=== PATIENT | female | born 1985 | race Caucasian/White ===

== ENCOUNTER 2020-05-30 15:09 | Outpatient (CLI) | payer BC, SELFPAY ==
[2020-05-30 15:40] LABS: Basophils Percent Auto 0.3 % (0.2-1.2); Eosinophils Absolute Auto 0.1 K/mm3 (0-0.3); Eosinophils Percent Auto 1.3 % (0-4.4); Hematocrit 34.6 % (37.0-47.0); Hemoglobin 11.9 g/dL (12.0-15.0); Immature Granulocyte Absolute 0.04 K/mm3 (0.00-0.031); Immature Granulocyte Percent A 0.6 % (0-0.5); Lymphocytes Absolute Auto 1.35 K/mm3 (0.9-3.2); Lymphocytes Percent Auto 19.5 % (18.3-44.2); Mean Corpuscular HGB Conc 34.4 g/dl (32-36); Mean Corpuscular Hemoglobin 28.3 pg (26-34); Mean Corpuscular Volume 82.4 fl (80-100); Monocytes Absolute Auto 0.4 K/mm3 (0.1-0.6); Monocytes Percent Auto 5.1 % (2.6-8.5); Neutrophils Absolute Auto 5.1 K/mm3 (1.3-6.7); Neutrophils Percent Auto 73.2 % (45.5-73.1); Platelet Count Result 272 k/mm3 (150-375); Red Cell Distribution Width 12.5 % (11.5-14.5); White Blood Count 6.9 K/mm3 (4.5-10.0)
[2020-05-30 15:42] LABS: Add Urine Microscopic? NO; Appearance Urine Clear (Clear); Bilirubin Urine Negative (Negative); Blood Urine Negative (Negative); Color Urine Yellow (Yellow); Glucose Urine UA Negative (Negative); Ketones Urine Negative (Negative); Leukocyte Esterase Ur Negative LEU/UL (NEGATIVE); Nitrate Urine Negative (Negative); Protein Urine Negative (Negative); Specific Grav Ur 1.018 (1.001-1.035); Urobilinogen Urine Negative mg/dL (<2.0)
[2020-05-30 16:22] LABS: Thyroid Stimulating Hormone 0.907 uIU/mL (0.465-4.680)
[2020-05-30 16:32] LABS: HIV 1/2 Ab P24 Ag Result Negative (Negative)
[2020-05-30 16:36] LABS: Vitamin D 25 Hydroxy 38.6 ng/mL
[2020-05-30 16:51] LABS: Hepatitis B Surface Antigen Negative (Negative); Rubella IgG Antibody 8.3 IU/ML
[2020-05-30 17:07] LABS: Hepatitis C Virus Antibody Negative (Negative)
[2020-05-31 07:36] LABS: Rapid Plasma Reagin Non-Reactive (NonReactive)
[2020-06-06 19:18] LABS: Hemoglobin 11.7 g/dL (11.7-15.5); MCH 27.4 pg (27.0-33.0); RDW 13.4 % (11.0-15.0); Red Blood Cell Count 4.27 Mill/uL (3.80-5.10)
== END 2020-05-30 15:10 | disposition home or self-care (01) ==
LOC: ANHLAB 15:11
PROVIDERS: PCP Physician Assistant; Visit Provider Obstetrics & Gynecology
DX: Z34.90 Encounter for supervision of normal pregnancy, unspecified, unspecified trimester (principal); Z3A.00 Weeks of gestation of pregnancy not specified; Z51.81 Encounter for therapeutic drug level monitoring; Z79.899 Other long term (current) drug therapy
CPT/HCPCS: 36415; 81003; 82306; 83021; 84443; 85025; 86592; 86703; 86762; 86787; 86803; 86850; 86900; 86901; 87086; 87340; G0432

== ENCOUNTER 2020-09-05 15:48 | Emergency (ER) | payer BC, SELFPAY ==
--- NOTE | 2020-09-05 15:54 | ECG_ITS ---
Measurements Intervals [place] Rate: 133 P: 41 OR: 141 QRS: 4 QRSD: 97 T: 5 QT: 300 QTc: 446 Interpretive Statements SINUS TACHYCARDIA INCOMPLETE RIGHT BUNDLE BRANCH BLOCK DELAYED PRECORDIAL R/S TRANSITION BORDERLINE ST-T WAVE ABNORMALITY- INFERIOR LEADS BASELINE WANDER- V4-V6 ABNORMAL ECG Electronically Signed On 09-05-2020 16:03:40 CDT by Paxton Rolon D.O.
[2020-09-05 16:01] VITALS: BP 134/82; PULSE 133; RESP 18; TEMP 36.1; O2SAT 96
[2020-09-05 16:15] LABS: Basophils Percent Auto 0.3 % (0.2-1.2); Eosinophils Percent Auto 0.1 % (0-4.4); Hematocrit 33.5 % (37.0-47.0); Hemoglobin 11.1 g/dL (12.0-15.0); Immature Granulocyte Absolute 0.08 K/mm3 (0.00-0.031); Immature Granulocyte Percent A 0.7 % (0-0.5); Lymphocytes Absolute Auto 0.39 K/mm3 (0.9-3.2); Lymphocytes Percent Auto 3.5 % (18.3-44.2); Mean Corpuscular HGB Conc 33.1 g/dl (32-36); Mean Corpuscular Hemoglobin 26.9 pg (26-34); Mean Corpuscular Volume 81.3 fl (80-100); Mean Platelet Volume 9.9 fl (7.4-10.4); Monocytes Absolute Auto 0.5 K/mm3 (0.1-0.6); Monocytes Percent Auto 4.9 % (2.6-8.5); Neutrophils Percent Auto 90.5 % (45.5-73.1); Platelet Count Result 249 k/mm3 (150-375); Red Blood Count 4.12 M/mm3 (4.2-5.4); Red Cell Distribution Width 13.3 % (11.5-14.5); White Blood Count 11.1 K/mm3 (4.5-10.0)
[2020-09-05 16:27] LABS: Alanine Aminotransferase 10 U/L (4-35); Alkaline Phosphatase 110 U/L (38-126); Anion Gap 10 mmol/L (8-16); Aspartate Amino Transferase 17 U/L (14-36); Bilirubin,Total 0.4 mg/dL (0.2-1.3); Blood Urea Nitrogen 7 mg/dL (7-17); Calcium 9.2 mg/dL (8.4-10.2); Carbon Dioxide 19 mmol/L (22-30); Chloride 102 mmol/L (98-107); Estimated CRCL calculation 171 ml/min; Estimated Glomerular Filt Rate > 60; Glucose 106 mg/dL (65-105); Potassium 3.7 mmol/L (3.4-5.0); Sodium 131 mmol/L (137-145)
--- NOTE | 2020-09-05 17:15 | ED.ARRPALP ---
HPI - Arrhythmia/Palpitations General Chief Complaint: Arrhythmia/Palpitations Stated Complaint: palpitations Time Seen by Provider: 09/05/20 17:14 History of Present Illness HPI narrative: 34 yo female at 25 weeks gestation presents to the ED for tachycardia. She reports that she has had an elevated heart rate all day. It was as high as 160 at home. She does report that she had some mild SOB, but thought it was probably anxiety. She got her COVID-19 vaccination yesterday and has experienced some aches and fatigue. No fever, chills, nausea, vomiting, diarrhea. Related Data Home Medications Medication Instructions Recorded Confirmed docosahexaenoic acid 200 mg capsule mg PO 05/25/19 09/06/20 levothyroxine 25 mcg tablet 25 mcg PO DAILY 05/08/20 09/06/20 Allergies Allergy/AdvReac Type Severity Reaction Status Date / Time sulfamethoxazole Allergy Unknown Unknown Verified 09/06/20 13:56 trimethoprim Allergy Unknown Unknown Verified 09/06/20 13:56 Review of Systems Review of Systems: All systems reviewed & are unremarkable except as noted in HPI and below Constitutional: Constitutional: Denies chills, Reports fatigue, Denies fever(s) and Denies weakness Eyes: Eyes: Reports no additional eye complaints ENT: Reports system reviewed and no additional complaints, except as documented and Denies sore throat Cardiovascular: Cardiovascular: Denies chest pain and Reports rapid heart rate Respiratory: Respiratory: Reports as per HPI Gastrointestinal: Gastrointestinal: Reports no additional gastrointestinal complaints Genitourinary: Genitourinary: Reports no additional female genitourinary complaints Neurologic: Reports system reviewed and no additional complaints, except as documented, Denies dizziness and Denies syncope [facility] Past Medical History Medical History Anovulation Anxiety Anxiety Chlamydia Depression Encounter for general counseling and advice on procreation History of delivery Surgical History Surgical History H/O LEEP Family History Family History Other Cerebrovascular accident Social History Social History Smoking status: Never smoker Second hand tobacco smoke exposure: No Alcohol intake: current Gender identity (if verbalized by the patient): Female Exam Const: General: healthy appearing, no acute distress and alert Orientation/consciousness: patient oriented x3 HENMT: Head: normal to inspection Neck: Neck: normal visual inspection and no lymphadenopathy Resp: Effort & Inspection: normal respiratory effort Auscultation: clear to auscultation bilaterally, no rales, no rhonchi and no wheezes Cardio: Jugular venous distension: no JVD Rate: tachycardic Rhythm: regular rhythm Heart sounds: no murmurs GI: Inspection: non-distended GI Palp: Yes Soft to palpation and No Tenderness to palpation present (GI) Skin: General skin exam: normal color Neuro: General: patient oriented x3, moves all extremities, no focal motor deficits and CN's II-XI intact bilaterally Speech: normal speech Extrem: General: normal to inspection and no edema Psych: Appearance: well kempt Affect: normal affect Course Vital Signs Vital signs: Vital Signs Temperature 36.1 C L 09/05/20 16:01 Pulse Rate 133 H 09/05/20 16:01 Respiratory Rate 18 09/05/20 16:01 Blood Pressure 134/82 09/05/20 16:01 Pulse Oximetry 96 09/05/20 16:01 Temperature 37.2 C 09/05/20 20:37 Pulse Rate 116 H 09/05/20 20:37 Respiratory Rate 21 H 09/05/20 20:37 Blood Pressure 141/86 H 09/05/20 20:37 Pulse Oximetry 100 09/05/20 20:37 MDM - Arrhythmia/Palpitations MDM Narrative Medical decision making narrative: orthostatics positive. Heart rate still elevated a
[2020-09-05] MEDS: SODIUM CHLORIDE 0.9% IV 1,000 ML 999 ML IV CONT ×2 (17:47→19:16)
[2020-09-05] MEDS: LORazepam INJ (*CRX) 2 MG/ML VIAL 0.5 MG IV PUSH (17:48)
--- NOTE | 2020-09-05 18:06 | PC.NURSE ---
1530-T's per doppler [id number]
[2020-09-05 18:56] VITALS: BP 136/76; PULSE 114; RESP 16; O2SAT 97
--- NOTE | 2020-09-05 19:50 | PC.NURSE ---
Pt presented to ED with complaints of palpitation and is currently 25 weeks . Pt, at this time states that she feels much better. Denies chest pain, palpitations and sob at this time. Vitals are stable. Will notify EDMD of pt improvement. Pt resting on cart in its lowest position with call button and personal items within reach. Pt in no obvious distress. Advised to press call button for assistance.
--- NOTE | 2020-09-05 20:01 | PC.NURSE ---
EDMD presented to bedside to speak with pt and updat on poc. All questions and concerns addressed.
[2020-09-05 20:25] VITALS: BP 141/86; PULSE 119; RESP 21; TEMP 37; O2SAT 100
[2020-09-05 20:37] VITALS: BP 141/86; PULSE 116; RESP 21; TEMP 37.2; O2SAT 100
--- NOTE | 2020-09-05 20:37 | PC.NURSE ---
Pt dc home alert, stable and in no obvious distress. Pt advised to follow up with pcp and voices her understanding.
== END 2020-09-05 20:39 | disposition home or self-care (01) ==
PROVIDERS: Emergency Medicine; Emergency Provider Emergency Medicine; PCP Physician Assistant
DX: O26.893 Other specified pregnancy related conditions, third trimester (principal); R00.0 Tachycardia, unspecified; O99.283 Endocrine, nutritional and metabolic diseases complicating pregnancy, third trimester; E86.0 Dehydration; O99.413 Diseases of the circulatory system complicating pregnancy, third trimester; I45.10 Unspecified right bundle-branch block; R94.31 Abnormal electrocardiogram [ECG] [EKG]; Z3A.25 25 weeks gestation of pregnancy
CPT/HCPCS: 36415; 80053; 85025; 93005; 96361; 96374; 99284; J2060; J7030

== ENCOUNTER 2020-11-01 14:18 | Outpatient (CLI) | payer BC, SELFPAY ==
[2020-11-01 14:47] LABS: Basophils Percent Auto 0.2 % (0.2-1.2); Eosinophils Absolute Auto 0.1 K/mm3 (0-0.3); Hematocrit 33.6 % (37.0-47.0); Hemoglobin 10.9 g/dL (12.0-15.0); Immature Granulocyte Absolute 0.06 K/mm3 (0.00-0.031); Immature Granulocyte Percent A 0.7 % (0-0.5); Lymphocytes Absolute Auto 1.34 K/mm3 (0.9-3.2); Lymphocytes Percent Auto 16.4 % (18.3-44.2); Mean Corpuscular HGB Conc 32.4 g/dl (32-36); Mean Corpuscular Hemoglobin 26.6 pg (26-34); Mean Platelet Volume 9.6 fl (7.4-10.4); Monocytes Absolute Auto 0.5 K/mm3 (0.1-0.6); Monocytes Percent Auto 6.5 % (2.6-8.5); Neutrophils Absolute Auto 6.1 K/mm3 (1.3-6.7); Neutrophils Percent Auto 75.2 % (45.5-73.1); Platelet Count Result 249 k/mm3 (150-375); White Blood Count 8.2 K/mm3 (4.5-10.0)
[2020-11-01 15:38] LABS: HIV 1/2 Ab P24 Ag Result Negative (Negative)
[2020-11-02 07:27] LABS: Rapid Plasma Reagin Non-Reactive (NonReactive)
== END 2020-11-01 14:19 | disposition home or self-care (01) ==
PROVIDERS: PCP Physician Assistant; Visit Provider Obstetrics & Gynecology
DX: Z34.93 Encounter for supervision of normal pregnancy, unspecified, third trimester (principal); Z3A.30 30 weeks gestation of pregnancy
CPT/HCPCS: 36415; 84443; 85025; 86592; 86703; G0432

== ENCOUNTER 2020-11-27 12:50 | Inpatient (IN) | payer BC, SELFPAY ==
--- NOTE | 2020-11-18 16:15 | PC.NURSE ---
VERIFIED WITH OR SCHEDULE AND PATIENT--C/S 12/01/20 AT 0730 PATIENT GIVEN REQUISITION FOR LAB DRAW ON 11/30/20
[2020-11-27] VITALS (45 sets, daily range): BP systolic 113–142; BP diastolic 69–82; PULSE 41–123; RESP 12–20; TEMP 36.5–36.9; O2SAT 97–100; BMI 25.0
--- OUTSIDE RECORDS SUMMARY | 2020-11-27 16:30 | XMS_ITS ---
:1985 Author Care Team Providers Name Role Phone IMKE BARAJAS MD Maternal Medicine [phone] BAKARI CARD MD Referring Provider [phone] Allergies Code Code System Name Reaction Severity Status Onset Adhesive Tape Hives ? Active ? Iodinated Hives ? Active ? Contrast Media 5933 RxNorm Iodine Hives ? Active ? Shellfish Hives ? Active ? Derived Sulfa Hives ? Active ? (Sulfonamide Antibiotics) Medications Name Status Start Date Stop Date ? ? alprazolam 0.5 mg tablet Active ? Not umang ilable TK 1 T PO D PRA cannabidiol (CBD) extract Completed ? 2018 cyclobenzaprine 10 mg tablet Completed ? TK 1 T PO BID PRN diclofenac sodium 75 mg tablet,delayed release Completed ? 06/01/2019 TK 1 T PO BID WF OR MILK dicyclomine Active ? Not available prn ibuprofen 200 mg tablet Completed ? 06/01/20 19 Take 1 tablet by oral route as needed. metformin ER 500 mg tablet,extended release 24 hr Active ? Not available TK 1 T PO QD WITH THE GEO MEAL methylprednisolone 4 mg tablets in a dose pack Completed ? 06/01/2019 TK UTD metoprolol succinate ER 50 mg tablet,extended release 24 hr Acti ve ? Not
--- OUTSIDE RECORDS SUMMARY | 2020-11-27 16:30 | XMS_ITS ---
:1985 Author Care Team Providers Name Role Phone Unassigned Primary Care Provider Unavailable Allergies Code Code System Name Reaction Severity Status Onset NKDA ? Medications No Medications Reported Notes: None. stopped taking OCP trinessa. Problems Name Status Onset Date Source ? Endometriosis Active ? History Hip Pain Active ? Encounter Chronic Low Back Pain Active ? History Polycystic Ovaries Active ? History Procedures Date Name Performed by ? 06/16/2012 Leep Information not avai lable Notes: x2 06/16/2007 Other Information not avai lable Notes: Pelvic laparoscopy for endomet riosis Results Lab Results None recorded. Past Encounters None recorded. Social History Tobacco Smoking Status Never Smoker Vaccine List Notes: Last Td booster reported to be 12/14/2004 Plan of Care Reminders Provider Appointments None ? ? recorded. Lab None ? ? recorded. Referral None ? ? recorded. Procedures None ? ? recorded. Surgeries None ? ? recorded.
--- NOTE | 2020-11-27 16:34 | WPDANESEPPF ---
Anes - Initial Pre Proc Eval Procedure: Operation Date: 12/01/20 07:30 Proposed Procedures p Primary Section - Morgan Mendieta MD Date/Time: 11/27/20 16:34 Surgeon: Morgan Mendieta MD Pre Op Diagnosis: Patient Data Age: 35 Gender: F Height: Weight: Allergies Allergy/AdvReac Type Severity Reaction Status Date / Time sulfamethoxazole Allergy Unknown Unknown Verified 11/23/20 14:49 trimethoprim Allergy Unknown Unknown Verified 11/23/20 14:49 shellfish derived Allergy Hives Verified 11/23/20 14:49 Sulfa (Sulfonamide Allergy Hives Verified 11/23/20 14:49 Antibiotics) Home Medications Medication Instructions Recorded Confirmed Type docosahexaenoic acid 200 mg capsule mg PO 05/25/19 11/22/20 History metformin 1,000 mg 24 hr 1,000 mg PO DAILY #60 tablet 08/31/19 11/22/20 Rx tablet,extended release levothyroxine 25 mcg tablet 50 mcg PO DAILY 05/08/20 11/22/20 History metoprolol succinate 50 mg 50 mg PO DAILY #90 tablet 05/22/20 11/22/20 Rx tablet,extended release 24 hr Tylenol-Codeine #3 1 tablet 11/18/20 History cephalexin [Keflex] 500 mg PO Q8H 11/18/20 11/18/20 History Patient hx anesthesia problems: none Family hx anesthesia problems: none PMFSH Past Medical History Medical History Anovulation Anxiety Anxiety Chlamydia Depression Encounter for general counseling and advice on procreation History of delivery Vaginal delivery x1 Surgical History Surgical History H/O LEEP Family History Family History Mother Multiple sclerosis Seizure disorder Hypertension Sibling Autoimmune disorder Social History Social History Smoking status: Never smoker Second hand tobacco smoke exposure: No Alcohol intake: current Substance use: never Gender identity (if verbalized by the patient): Female Spiritual care concerns: No Anes - Eval Final PreProcedure Day of Procedure 11/27/20 16:34 Patient weight: obese Heart: regular rate and rhythm Lungs: clear to auscultation and normal air movement Airway: Mallampati scale class II Neurological: alert and oriented Last oral intake: >/= 8 hours ASA classification: III Emergent: no Anesthetic plan: proceed Anesthesia type and monitoring: regional spinal Informed Consent: The patient's anesthetic plan and its attendant risks and benefits were discussed with the patient/family/POA. Questions were solicited and answers provided to the satisfaction of the patient/family/POA.
--- NOTE | 2020-11-27 16:39 | LDADM ---
This patient, Sravanthi Hillman, was admitted to OB Post [facility] on 11/27/20 at 12:50. Plans for labor, pain management and were discussed with patient. Patient/family oriented to hospital policies and general routines including ID bracelet, bed and alarms, visiting hours, pain management, procedures, bathroom and other care routines, personal items, smoking policy, room service/diet and guest tray routines, infant security routines, and visiting hours. Patient/Family are encouraged to report perceived risks to care and to ask questions if they do not understand what they are told or what they should do. See OBIX for further documentation.
--- NOTE | 2020-11-27 16:40 | PM.IMHP ---
H&P: HPI History of Present Illness Date/Time: 11/27/20 16:40 Patient at 37 4/7 weeks presented to L and D for surveillance which is what she was getting due to : chronic hypertension. tracing initially nonreactive and there were repetitive decelerations and decreased variability.. With further monitoring she did continue to have intermittent variables and john mild decelerations in between accelerations. She was informed that this is not reassuring at term and with her multiple risk factors, delivery today is recommended. Discussed risk of continuing to include distress, stillbirth. She has been followed comanaged with [facility] following her cervical length in second trimester and surveillance testing. She has been previously informed of risk benefit of cesearean section and her questions were answered. She agrees to cesearean section for nonreassuring testing at term. She recently was diagnosed with polyhydramnios and she was getting once weekly testing. I recommended increasing surveillance to twice weekly until her scheduled which was scheduled for Fri. She is getting a primary cesearean due to history of abdominal cerclage which she had due to history of cervical incompetence and prior 23 week delivery. Her history is also significant for hypothyroidism. She was on Metformin prior to due to insulin resistance and PCOS and she chose to stay on Metformin during .. She did not do a GTT due to being on Metformin but she has been followed by [facility] for high risk and she was seeing the intrusion analyst and her fingersticks were being monitored. They were normal until one week ago when she started having increase fastings. Also less than two weeks ago was diagnosed with polyhydramnios. She was recommended to monitor her carb intake last week and to do a more structured meal plan and to eat a snack at night. She reports that her fastings since doing that have been in the 80s. The baby has also been in an unstable lie which is consistent with her having the abdominal cerclage. Labs reviewed. GBS Pos. Chief Complaint: Nonreassuring testing. Review of Systems Review of Systems: All systems reviewed & are unremarkable except as noted in HPI and below Constitutional: Constitutional: Reports no additional constitutional complaints and Denies headache(s) Eyes: Eyes: Denies spots in vision ENT: Reports system reviewed and no additional complaints, except as documented and Denies headache(s) Cardiovascular: Cardiovascular: Denies chest pain and Denies dyspnea Respiratory: Respiratory: Denies dyspnea Gastrointestinal: Gastrointestinal: Reports no additional gastrointestinal complaints Genitourinary: Genitourinary: Reports amenorrhea Musculoskeletal: Musculoskeletal: Reports no additional musculoskeletal complaints Integumentary/Breasts: Skin/Breast: Denies breast mass and Denies rash Neurologic: Denies headache(s) Psychiatric: Psychiatric: Reports no additional psychiatric complaints PMFSH Past Medical History Medical History Anovulation Anxiety Anxiety Chlamydia Depression Encounter for general counseling and advice on procreation History of delivery Vaginal delivery x1 Surgical History Surgical History H/O LEEP Family History Family History Mother Multiple sclerosis Seizure disorder Hypertension Sibling Autoimmune disorder Social History Social History Smoking status: Never smoker Second hand tobacco smoke exposure: No Alcohol intake: current Substance use: never Gender identity (if verbalized by the patient): Female Spiritual care concerns: No Meds Home Medications and Allergies Home Medications M
[2020-11-27 16:52] LABS: Basophils Percent Auto 0.2 % (0.2-1.2); Eosinophils Absolute Auto 0.1 K/mm3 (0-0.3); Eosinophils Percent Auto 0.6 % (0-4.4); Hemoglobin 11.9 g/dL (12.0-15.0); Immature Granulocyte Absolute 0.08 K/mm3 (0.00-0.031); Immature Granulocyte Percent A 0.9 % (0-0.5); Lymphocytes Absolute Auto 1.21 K/mm3 (0.9-3.2); Lymphocytes Percent Auto 13.8 % (18.3-44.2); Mean Corpuscular HGB Conc 33.1 g/dl (32-36); Mean Corpuscular Hemoglobin 27.2 pg (26-34); Mean Corpuscular Volume 82.4 fl (80-100); Mean Platelet Volume 10.1 fl (7.4-10.4); Monocytes Absolute Auto 0.6 K/mm3 (0.1-0.6); Monocytes Percent Auto 6.3 % (2.6-8.5); Neutrophils Absolute Auto 6.9 K/mm3 (1.3-6.7); Neutrophils Percent Auto 78.2 % (45.5-73.1); Platelet Count Result 242 k/mm3 (150-375); Red Blood Count 4.37 M/mm3 (4.2-5.4); Red Cell Distribution Width 14.9 % (11.5-14.5); White Blood Count 8.8 K/mm3 (4.5-10.0)
--- OUTSIDE RECORDS SUMMARY | 2020-11-27 16:57 | XMS_ITS ---
:1985 Author Care Team Providers Name Role Phone MIKE BARAJAS MD Maternal Medicine [phone] BAKARI CARD MD Referring Provider [phone] Allergies Code Code System Name Reaction Severity [...]
[2020-11-27 17:13] LABS: Glucose Point of Care 91 mg/dl (65-105)
[2020-11-27] MEDS: ceFAZolin 2 GM/D5W 50 ML 2 GM/50 ML BAG IVPB (17:24)
--- NOTE | 2020-11-27 18:25 | PC.NURSE ---
interceed absorabable adhesions barrier used during c/s by dr polo.
--- NOTE | 2020-11-27 18:48 | W.PM.PROC2 ---
Procedure Note - Detailed Date of Procedure 11/28/20 Pre-op Diagnosis Indicated primary ceserean section Abdominal cerclage Nonreassuring tracing. Unstable lie Post-op Diagnosis same Procedure Performed Primary low transverse ceserean section. Surgeon Morgan Mendieta MD Anesthesia spinal Indications Pt at 37 weeks with nonreassuring surveillance test. Unstable lie. Current intact cerclage. Findings Female infant, one loose nuchal cord, bandlero cord wrapped around twice. Breech presentation. Description of Procedure After informed consent was obtained patient was taken to the operating room and adequate spinal anesthesia was administered. She was placed in supine position and prepped and draped in sterile fashion. Attention was turned to the abdomen. A Pfannenstiel skin incision was made with the scalpel. The subcutaneous tissue was dissected down to the fascia. The fascia was incised in the midline and extended bilaterally with Rodas scissors. The fascia was from rectus muscles superiorly and inferiorly bluntly and using cautery. Hemostasis was achieved with cautery. The peritoneum was then entered bluntly. The pelvic organs were visualized. Attention was then turned to the uterus. Approximately 7 cm above the visualized cerclage stitch which was visualized and had some scarring above it. A transverse incision was made with the scalpel the layers of the uterus was entered And using bandage scissors the incision was extended. The amniotic cavity was visualized this was entered and clear fluid large amount was noted. The was noted to be in the lateral breech presentation. The buttocks was grabbed and the legs were delivered in a Pinard fashion. The arms were delivered in a Poinard fashion. And the infants head was delivered in a flexed position. The infant was vigorously crying upon delivery. There is noted to be a loose nuchal cord once and there was a bandolier cord wrapped twice around the baby's trunk and around the leg. The cord was then doubly clamped and cut the infant was handed to the nursery staff in attendance. Cord segment was obtained. The placenta was delivered manually. The uterine cavity was sponge curetted. The uterus was placed out of the abdomen and the incision was closed in a running locking fashion with 0 Vicryl and a 2nd imbricating stitch of 0 Vicryl. Hemostasis was noted. Uterine tone was good. The uterus was placed back into the abdomen after the posterior cul-de-sac was irrigated. The pericolic gutters were then irrigated. The incision was inspected again and noted to be hemostatic Interceed was placed horizontally along the incision. The peritoneum layer was closed with 3 O Vicryl. The muscle bellies were inspected and noted to be hemostatic. The fascia was closed in a running fashion with 0 Vicryl. The subcutaneous tissue was irrigated hemostasis obtained with cautery. The skin incision was closed in a subcuticular fashion with 0 Vicryl on a Keif needle. Skin glue was applied to area. Sponge count was correct x3. Patient tolerated procedure well and was taken to recovery in stable condition. Estimated Blood Loss 345 Urine Output 100 Drains No Packing No Pathology none sent Complications No immediate complications Condition stable Disposition floor (Recovery)
[2020-11-27] MEDS: KETOROLAC 30 MG/ML VIAL (*BKC) IV PUSH (18:58)
[2020-11-27] MEDS: ONDANSETRON INJ 4 MG/2 ML VIAL IV PUSH ×2 (19:28→20:44)
[2020-11-27] MEDS: OXYTOCIN 30 UNITS/NS 500 ML 30 UNITS/500 ML BAG 125 UNITS IV CONT (20:04)
--- NOTE | 2020-11-27 21:10 | OBPPTRN ---
Patient transferred to post room #288 via stretcher. Support person present. Oriented to unit, room, information board, rooming in, admission packet and security measures. Patient verbalizes understanding.
[2020-11-27] MEDS: PROMETHAZINE HCL 25 MG/ML AMPUL 12.5 MG IV PUSH (22:03)
[2020-11-28] VITALS (7 sets, daily range): BP systolic 99–128; BP diastolic 60–79; PULSE 67–97; RESP 16–20; TEMP 36.6–36.9; O2SAT 95–98
[2020-11-28] MEDS: KETOROLAC 30 MG/ML VIAL (*BKC) IV PUSH (00:58)
[2020-11-28] MEDS: LACTATED RINGERS 1,000 ML 125 ML IV CONT (00:58)
[2020-11-28 05:59] LABS: Hematocrit 31.9 % (37.0-47.0); Hemoglobin 10.5 g/dL (12.0-15.0)
[2020-11-28] MEDS: HYDROcodone/acetaminophen (*CRX) 5-325 MG TABLET 1 TAB PO ×5 (07:17→23:59)
[2020-11-28] MEDS: MULTIVIT/MIN/PREN/FOL AC/IRON TABLET 1 TAB PO (07:17)
[2020-11-28] MEDS: DOCUSATE SODIUM 100 MG CAPSULE PO ×2 (07:17→16:05)
[2020-11-28] MEDS: IBUPROFEN 600 MG TABLET PO ×3 (07:18→20:47)
--- NOTE | 2020-11-28 07:27 | WPDANLDPN2 ---
Anes-Prog Note L&D Date/Time: 11/28/20 07:27 Comfortable throughout: section Neuraxial method: spinal Epidural/Spinal procedure site: clean & non-tender Neuro status: Neuro function grossly intact. Cardiovascular status: normal Respiratory status: normal Airway patency: baseline Mental status: baseline Post-Op hydration status: normal Vital Signs: Last Vital Signs Temp 36.6 C 11/28/20 04:00 Pulse 74 11/28/20 04:00 Resp 16 11/28/20 04:00 BP 110/71 11/28/20 04:00 Pulse Ox 98 11/28/20 04:00 Pain score (VAS): 06/25 I/O: Intake & Output 11/27/20 11/27/20 11/28/20 15:59 23:59 07:59 Intake Total 50 700 Output Total 1045 675 Balance -995 25 Post-procedural complaints: nausea moderate, treatment effective and vomiting Patient feedback: Patient satisfied with anesthetic care.
--- NOTE | 2020-11-28 07:27 | WPDANLDNPN2 ---
Anes-Prog Note L&D-Neuraxial Date/Time: 11/28/20 07:27 Neuraxial medications: intrathecal PF morphine Opiod-related complaints: none Patient feedback: Patient satisfied with post-operative pain management.
--- NOTE | 2020-11-28 11:00 | PC.NURSE ---
Consult with pt., mother states she is bottle feeding and will attempt infant to breast at times. Mother is pumping every three hours to and voices concerns she is not p umping more than a few drops. Assured mother this is normal at this time and milk should transition in and increase with in a few days. Reviewed breast pump care and usage, pumping schedule, nipple care, and collection and storage of breast milk. Encouraged [id number], breast massage and manual expression to stimulate supply. Requested mother call out next feeding attempt for assist and to asses for correct flange size, placement and draw. Patient verbalizes and demonstrates understanding of instructions. Discussed and the 37 week . Mother reports she pumped and bottle fed for a few weeks with first child delivered at 32 weeks.
[2020-11-28 13:16] LABS: Rapid Plasma Reagin Non-Reactive (NonReactive)
[2020-11-28] MEDS: CEPHALEXIN 500 MG CAPSULE PO ×2 (13:26→21:37)
[2020-11-28] MEDS: METOPROLOL SUCCINATE EXT REL 50 MG TABCR PO (20:46)
[2020-11-28] MEDS: metFORMIN HCL XR 500 MG TAB.SR.24H 1000 MG PO (20:46)
[2020-11-29] MEDS: IBUPROFEN 600 MG TABLET PO (05:05)
[2020-11-29] MEDS: HYDROcodone/acetaminophen (*CRX) 5-325 MG TABLET 1 TAB PO ×2 (05:05→09:46)
[2020-11-29] MEDS: CEPHALEXIN 500 MG CAPSULE PO (05:05)
[2020-11-29 07:05] VITALS: BP 119/71; PULSE 76; RESP 18; TEMP 36.7
--- NOTE | 2020-11-29 07:41 | P.PNOB_ITS ---
OB - PN: Subj Subjective Date/time seen: 11/29/20 07:41 She states she is doing well. Adequate pain control. No leg pain. No chest pain. Ambulating well. OB - PN: Obj Data Labs CBC & Chem 7: 11/28/20 04:24 Labs: Laboratory Results - last 24 hr 11/27/20 16:45 RPR Non-reactive OB - PN A/P Assessment and Plan (1) delivery indicated due to breech presentation: Code(s): O32.1XX0 - Maternal care for breech presentation, not applicable or unspecified Status: Acute Assessment and Plan: She is doing well. Discharge home. Discussed discharge precautions. Time Spent With Patient Time: Total time spent is greater than 50% in coordination of care (as docume nted) at patient's floor/unit and/or counseling patient: Exam Const: General: comfortable and no acute distress Eyes: General: appearance normal, both eyes and all related structures Resp: Effort & Inspection: normal respiratory effort GI: Inspection: normal to inspection GI Palp: No abdominal tenderness Other: incision c/d/i Extrem: General: no calf tenderness Psych: Mental Status: mental status grossly normal Affect: normal affect
--- NOTE | 2020-11-29 07:45 | PM.OBDSVD ---
DS: Admitting Diagnosis Admitting Diagnosis Admitting Diagnosis: 1. Nonreassuring testing 2. Unstable lie 3. Chronic hypertension 4. Cervical incompetence DS: Discharge Diagnosis Discharge Diagnosis (1) Delivery by section: Status: Acute (2) Non-reassuring cardiotocographic tracing: Code(s): O36.8390 - Maternal care for abnormalities of the heart rate or rhythm, unspecified trimester, not applicable or unspecified Status: Acute (3) Advanced maternal age (AMA) in : Status: Acute (4) History of incompetent cervix, currently : Code(s): O09.299 - Supervision of with other poor reproductive or obstetric history, unspecified trimester Status: Acute OB - DS: Summary Hospital Course Hospital Course: Patient admitted for delivery for nonreassuring tracing. She has an abdominal cerclage and therefore has to delivery via cesearean. She underwent an uncomplicated transverse ceserean section of breech fetus. Post she did well. She was ambulating and tolerating regular diet on POD1. She had adequate pain control on POD1. POD2 she was doing well and was discharged to home with discharge precautions. Baby was doing well. Time spent discussing smoking cessation with patient: 3 to 10 minutes OB Procedures : Cerclage, NST and Ultrasound OB Procedures Intrapartum: OB Procedures: : None Peripartum Data Infant Delivery Method: Section Procedures: Procedures Operation Date: 12/01/20 07:30 Actual Procedure Side Surgeon p Section Bilateral Morgan Polo MD Status at Discharge Functional status at discharge: independent ambulation Overall status at discharge: patient is back to baseline Time Spent with Patient Time attestation: Total time spent providing and/or coordinating discharge services: Exam Const: General: comfortable and no acute distress Eyes: General: appearance normal, both eyes and all related structures Resp: Effort & Inspection: normal respiratory effort GI: Other: incision clean dry and intact Neuro: General: patient oriented x3 Extrem: General: no calf tenderness bilaterally Psych: Appearance: grossly normal DS: Data Data Completed and Pending Pending studies at discharge: Pending at discharge 11/27/20 18:21 Surgical [PTH] Routine Labs on day of discharge: Labs from last 24 hours 11/27/20 16:45 RPR Non-reactive Discharge Plan Discharge Attending physician on discharge: dee dee polo Consulting providers: Dez Traylor Discharging Clinician: Morgan Polo Patient Disposition: Home, Self-Care Activity: may drive after 2 weeks Diet: as tolerated Discharge Instructions: Education: Mom and Baby Guide Given to: Mother Follow-Up: Call your delivering provider's office for an appointment. Mom and baby should come to the [facility] for the follow-up appointment. Appointment Date/Time: November 30, 2020 at 9:00 am What to expect at your follow-up visit: Physical Assessment Call [phone] if you are unable to keep your appointment time. BREAST CARE: * Wear a snug supportive bra. * For engorgement discomfort: Breast Feeding: * Apply warm moist washcloths * Express milk as needed to relieve engorgement * Wear loose clothing * For sore nipples: * Identify correct latch-on * Apply warm moist washcloths before and after nursing * Air dry nipples after nursing * May apply Lansinoh cream to nipples ABDOMINAL INCISION: * Allow incision to air dry * Do NOT use lotions for powders on your incision * When showering, allow soap and water to run over the incision, but do not wash incision PERINEAL CARE: * Until bleeding stops, use your starr bottle after urinating * Change your pad frequently throughout the day * No tub baths until seen
[2020-11-29] MEDS: MEASLES,MUMPS,RUBELLA VACCINE 0.5 ML VIAL (09:44)
[2020-11-29] MEDS: MULTIVIT/MIN/PREN/FOL AC/IRON TABLET 1 TAB PO (09:46)
[2020-11-29] MEDS: DOCUSATE SODIUM 100 MG CAPSULE PO (09:46)
[2020-11-30 09:32] VITALS: BP 131/70; PULSE 78; RESP 20; TEMP 36.8; O2SAT 100
== END 2020-11-29 11:32 | disposition home or self-care (01) | DRG 787 ==
LOC: ANHLDR 16:55 → ANHOB2 21:37
PROVIDERS: Admitting Provider Obstetrics & Gynecology; PCP Physician Assistant; Visit Provider Obstetrics & Gynecology
DX: O10.92 Unspecified pre-existing hypertension complicating childbirth (principal); O26.872 Cervical shortening, second trimester; O76 Abnormality in fetal heart rate and rhythm complicating labor and delivery; O40.3XX0 Polyhydramnios, third trimester, not applicable or unspecified; O99.284 Endocrine, nutritional and metabolic diseases complicating childbirth; E03.9 Hypothyroidism, unspecified; E28.2 Polycystic ovarian syndrome; O69.81X0 Labor and delivery complicated by cord around neck, without compression, not applicable or unspecified; O32.1XX0 Maternal care for breech presentation, not applicable or unspecified; O99.824 Streptococcus B carrier state complicating childbirth; Z3A.37 37 weeks gestation of pregnancy; Z37.0 Single live birth
CPT/HCPCS: 36415; 82948; 85014; 85018; 85025; 86592; 86850; 86900; 86901; 88307; 90710; A9270; J0690; J1885; J2250; J2274; J2405; J2550; J2590; J7120

== ENCOUNTER 2020-11-27 12:50 | Outpatient (RCR) | payer BC, SELFPAY ==
--- NOTE | 2020-11-27 16:20 | PC.NURSE ---
See inpatient v number, C/S called.
== END 2020-12-04 08:17 | disposition home or self-care (01) ==
LOC: ANHOBOP 12:50
PROVIDERS: PCP Physician Assistant; Visit Provider Obstetrics & Gynecology
DX: O26.899 Other specified pregnancy related conditions, unspecified trimester (principal); Z3A.00 Weeks of gestation of pregnancy not specified
CPT/HCPCS: 99199

== ENCOUNTER 2021-01-09 15:50 | Emergency (ER) | payer BC, SELFPAY ==
[2021-01-09 15:57] VITALS: BP 134/84; PULSE 80; RESP 16; TEMP 36; O2SAT 99
[2021-01-09 16:02] VITALS: BP 134/84; PULSE 80; RESP 16; TEMP 36; O2SAT 99
--- NOTE | 2021-01-09 16:20 | ED.BACK ---
HPI - Back Pain/Injury General Chief Complaint: Back Pain/Injury Stated Complaint: back pain Time Seen by Provider: 01/09/21 16:01 Source: patient and RN notes reviewed Mode of arrival: ambulatory Limitations: no limitations History of Present Illness HPI Narrative: Patient presents today complaining of right-sided sciatic pain. Patient is 6 weeks and has had sciatic pain since before she got , but it has worsened since after she gave . Pain has increased this morning after picking up a car seat in her baby. She has tried TENS unit, Biofreeze, heat, ice, ibuprofen without relief. Currently rates her pain 10. Denies numbness or tingling in the legs or feet, or genitals. Denies loss of bowel or bladder control. MD elicited complaint: back pain Related Data Home Medications Medication Instructions Recorded Confirmed PNV cmb#95-ferrous fumarate-FA 1 tablet PO DAILY 11/27/20 01/02/21 [] Allergies Allergy/AdvReac Type Severity Reaction Status Date / Time sulfamethoxazole Allergy Unknown Unknown Verified 01/02/21 15:00 trimethoprim Allergy Unknown Unknown Verified 01/02/21 15:00 shellfish derived Allergy Hives Verified 01/02/21 15:00 Sulfa (Sulfonamide Allergy Hives Verified 01/02/21 15:00 Antibiotics) Review of Systems Review of Systems: Narrative: CONSTITUTIONAL: Denies body aches, fever, chills, or sweats. EYES: Denies visual changes, redness, or discharge. ENT: Denies rhinorrhea, congestion, sore throat, or otalgia. CARDIOVASCULAR: Denies chest pain, palpitations, or edema. RESPIRATORY: Denies cough or dyspnea. GASTROINTESTINAL: Denies abdominal pain, nausea, vomiting, or diarrhea. GENITOURINARY: Denies dysuria or hematuria. SKIN: Denies rash, itching, or wounds. MUSCULOSKELETAL: Denies back pain, joint pain. + Right-sided sciatic pain NEUROLOGIC: Denies headache, numbness, tingling, or weakness. PSYCH: Denies depression or anxiety. [facility] Past Medical History Medical History Anovulation Anxiety Anxiety Chlamydia Depression Encounter for general counseling and advice on procreation History of delivery Vaginal delivery x1 Surgical History Surgical History H/O LEEP History of section x1 Family History Family History Mother Multiple sclerosis Seizure disorder Hypertension Sibling Autoimmune disorder Social History Social History Smoking status: Never smoker Second hand tobacco smoke exposure: No Alcohol intake: current Substance use: never Gender identity (if verbalized by the patient): Female Spiritual care concerns: No Comments At time of signature, I have reviewed and agree with nursing past medical, surgical, social and family history unless otherwise noted. Please see nursing chart for further information. There is no relevant family history pertinent to the presenting complaint Exam Narrative: Exam Narrative: GENERAL: Well-appearing, well-nourished, and in no acute distress. HEAD: Normocephalic, atraumatic. EYES: EOMI. No redness or drainage. Conjunctivae normal. ENT: Mucous membranes pink and moist. NECK: Normal AROM. CHEST: No respiratory distress. MUSCULOSKELETAL: No bony tenderness of the thoracic or lumbar spine. No tenderness to the right SI joint, but patient localizes pain to this area. Distal sensation intact. Saddle sensation intact. Capillary refill normal. Pedal pulses normal. Foot push and pulls equal and strong. EXTREMITIES: Normal range of motion. No edema. SKIN: Warm, dry, no rash. Capillary refill normal. Normal skin turgor. NEURO: No focal deficits. Alert and oriented x3. Gait steady. PSYCH: Normal affect. No signs of depression or anxiety.
== END 2021-01-09 16:35 | disposition home or self-care (01) ==
PROVIDERS: Emergency Provider Nurse Practitioner
DX: M54.31 Sciatica, right side (principal)
CPT/HCPCS: 99213; G0463

== ENCOUNTER 2021-03-02 11:58 | Emergency (ER) | payer BC, SELFPAY ==
--- NOTE | ~2021-03-02 | CT_ITS ---
EXAMINATION: CT lumbar spine wo con EXAM DATE: 03/02/2021 12:55 INDICATION: Low back pain radiating down left leg, paresthesia. TECHNIQUE: Spiral CT of the lumbar spine was performed without contrast. Axial, coronal and sagittal images lumbar spine were reviewed. The dose-length product (DLP) for this examination was 1023.22 m Gy-cm. The exposure was tailored according to patient size (auto mA exposure control), and iterativ e reconstruction (ASIR) was used as additional dose reduction technique. There is no prior study for comparison. FINDINGS: Studies limited due to patient's body habitus. There is suspicion of large L5-S1 central di sc extrusion, probably causing moderate to severe central canal stenosis. Moderate loss of this disc height. The other disc and vertebral body heights are maintained. Mild to moderate L5-S1 facet arthro mily, mild at L4-5. Mild right L5-S1 neural foraminal stenosis. Other neural foramen appear well pat ent. No spondylolysis. Paraspinal soft tissue is unremarkable. 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 A follow-up nonemergent lumbar spine MRI examination should be considered. Reviewed, dictated and finalized at location B. IMPRESSION: Probable large L5-S1 disc extrusion causing moderate to severe lum bar central canal stenosis. A follow-up nonemergent lumbar spine MRI examinatio n should be considered.
[2021-03-02 11:58] VITALS: BP 153/95; PULSE 110; RESP 20; TEMP 36.7; O2SAT 95
[2021-03-02 12:40] VITALS: BP 123/77; PULSE 104; RESP 20; O2SAT 99
--- NOTE | 2021-03-02 12:43 | ED.BACK ---
HPI - Back Pain/Injury General Chief Complaint: Back Pain/Injury Stated Complaint: back pain Time Seen by Provider: 03/02/21 12:19 Source: patient Mode of arrival: EMS Limitations: no limitations History of Present Illness HPI Narrative: This is a 35 year old female that presents to the ER for low back pain worsening over the last 2 days. Reports history of problems with her low back. Reports she coughed 2 days ago and this has exacerbated her pain. Pain is started to radiate down the left leg. Reports she feels tingling in her left toes. She has been taking anti-inflammatories and muscle relaxer with little relief. Reports the pain is making it difficult for her to walk which prompted her to be seen. Denies fever, saddle anesthesia, or bowel/bladder incontinence. Related Data Home Medications Medication Instructions Recorded Confirmed PNV cmb#95-ferrous fumarate-FA 1 tablet PO DAILY 11/27/20 03/02/21 [] buspirone 10 mg PO DAILY 03/02/21 03/02/21 levothyroxine 50 mcg PO DAILY 03/02/21 03/02/21 Allergies Allergy/AdvReac Type Severity Reaction Status Date / Time sulfamethoxazole Allergy Unknown Unknown Verified 03/02/21 12:02 trimethoprim Allergy Unknown Unknown Verified 03/02/21 12:02 shellfish derived Allergy Hives Verified 03/02/21 12:02 Sulfa (Sulfonamide Allergy Hives Verified 03/02/21 12:02 Antibiotics) Review of Systems Review of Systems: CONSTITUTIONAL: Denies fever SKIN: Denies rash MUSCULOSKELETAL: Reports back pain, joint pain, and myalgia. NEUROLOGIC: Denies numbness, or weakness. All systems reviewed & are unremarkable except as noted in HPI and below PMFSH Past Medical History Medical History Anovulation Anxiety Anxiety Chlamydia Depression Encounter for general counseling and advice on procreation History of delivery Vaginal delivery x1 Surgical History Surgical History H/O LEEP History of section x1 Family History Family History Mother Multiple sclerosis Seizure disorder Hypertension Sibling Autoimmune disorder Social History Social History Smoking status: Never smoker Second hand tobacco smoke exposure: No Alcohol intake: current Substance use: never Gender identity (if verbalized by the patient): Female Spiritual care concerns: No Exam Narrative: GENERAL: Well-appearing, obese, and in no acute distress. HEAD: Normocephalic, atraumatic. EYES: EOMI. CHEST: Clear to auscultation. No respiratory distress. No wheezes rales or rhonchi HEART: Regular rate and rhythm. No murmur heard. Normal peripheral pulses. EXTREMITIES: Normal range of motion. No edema. Strength equal in bilateral lower extremities (5/5). Normal DP pulses SKIN: Warm, dry, no rash. NEURO: No focal deficits. Alert and oriented x3. PSYCH: Normal mood and affect Course Consultations Consultation #1: Spoke with patient's primary about work-up for follow-up. Date: 03/02/21 Time: 14:00 Vital Signs Vital signs: Vital Signs Temperature 98.1 F 03/02/21 11:58 Pulse Rate 110 H 03/02/21 11:58 Respiratory Rate 20 03/02/21 11:58 Blood Pressure 153/95 H 03/02/21 11:58 Pulse Oximetry 95 03/02/21 11:58 Temperature 98.1 F 03/02/21 11:58 Pulse Rate 93 03/02/21 14:18 Respiratory Rate 20 03/02/21 14:18 Blood Pressure 140/84 03/02/21 14:18 Pulse Oximetry 95 03/02/21 14:18 MDM - Back Pain/Injury MDM Narrative Medical decision making narrative: Patient presents the emergency department for low back pain ongoing over the last couple of days. No recent injury or trauma. Her vitals are stable. She is afebrile and nontoxic-appearing. Denies saddle anesthesia or bowel/bladder incontinence. Goo
[2021-03-02] MEDS: KETOROLAC (*BKC) 60 MG/2 ML VIAL IM (13:15)
[2021-03-02] MEDS: ACETAMINOPHEN 500 MG TABLET 1000 MG PO (13:15)
[2021-03-02] MEDS: diazePAM INJ (*CRX) 10 MG/2 ML SYRINGE 5 MG IM (13:15)
[2021-03-02 14:18] VITALS: BP 140/84; PULSE 93; RESP 20; O2SAT 95
== END 2021-03-02 14:58 | disposition home or self-care (01) ==
PROVIDERS: Emergency Provider Emergency Medicine; PCP Physician Assistant
DX: M54.16 Radiculopathy, lumbar region (principal); F41.9 Anxiety disorder, unspecified; F32.9 Major depressive disorder, single episode, unspecified
CPT/HCPCS: 72131; 81025; 96372; 99284; A9270; J1885; J3360

== ENCOUNTER 2021-08-15 15:41 | Outpatient (CLI) | payer BC, SELFPAY ==
[2021-08-15 16:20] LABS: Basophils Absolute Auto 0.1 K/mm3 (0.0-0.1); Basophils Percent Auto 0.9 % (0.2-1.2); Eosinophils Absolute Auto 0.1 K/mm3 (0-0.3); Eosinophils Percent Auto 1.5 % (0-4.4); Hematocrit 39.8 % (37.0-47.0); Hemoglobin 12.7 g/dL (12.0-15.0); Immature Granulocyte Absolute 0.02 K/mm3 (0.00-0.031); Immature Granulocyte Percent A 0.2 % (0-0.5); Immature Platelet Fraction Pct 2.8 % (0.9-11.2); Lymphocytes Absolute Auto 1.84 K/mm3 (0.9-3.2); Lymphocytes Percent Auto 22.4 % (18.3-44.2); Mean Corpuscular HGB Conc 31.9 g/dl (32-36); Mean Corpuscular Hemoglobin 26.6 pg (26-34); Mean Corpuscular Volume 83.4 fl (80-100); Mean Platelet Volume 9.6 fl (7.4-10.4); Monocytes Absolute Auto 0.4 K/mm3 (0.1-0.6); Monocytes Percent Auto 4.9 % (2.6-8.5); Neutrophils Absolute Auto 5.8 K/mm3 (1.3-6.7); Neutrophils Percent Auto 70.1 % (45.5-73.1); Platelet Count Result 431 k/mm3 (150-375); Red Blood Count 4.77 M/mm3 (4.2-5.4); Red Cell Distribution Width 13.3 % (11.5-14.5); White Blood Count 8.2 K/mm3 (4.5-10.0)
[2021-08-15 16:30] LABS: Alanine Aminotransferase 18 U/L (4-35); Albumin Level 4.5 g/dL (3.5-5.1); Alkaline Phosphatase 98 U/L (38-126); Anion Gap 9 mmol/L (8-16); Aspartate Amino Transferase 23 U/L (14-36); Bilirubin,Total 0.4 mg/dL (0.2-1.3); Blood Urea Nitrogen 8 mg/dL (7-17); Calcium 9.2 mg/dL (8.4-10.2); Carbon Dioxide 24 mmol/L (22-30); Chloride 104 mmol/L (98-107); Estimated Glomerular Filt Rate > 60; Glucose 113 mg/dL (65-110); Sodium 137 mmol/L (137-145)
[2021-08-15 16:51] LABS: Ovalocytes 1+ (NORMAL); Platelet Estimate Increased (Adequate)
[2021-08-15 17:44] LABS: Hepatitis B Surface Antigen Negative (Negative)
[2021-08-15 18:02] LABS: Hepatitis C Virus Antibody Negative (Negative)
[2021-08-19 10:42] LABS: HLA B27 Negative (Negative)
== END 2021-08-15 15:42 | disposition home or self-care (01) ==
LOC: ANHLAB 15:45
PROVIDERS: PCP Nurse Practitioner Family
DX: M13.80 Other specified arthritis, unspecified site (principal)
CPT/HCPCS: 36415; 80053; 85025; 85055; 86803; 86812; 87340; 87491; 87591

== ENCOUNTER → 2023-05-01 09:34 | Outpatient (CLI) | payer BC, SELFPAY ==
--- NOTE | ~2023-05-01 | MR_ITS ---
MRI of the lumbar spine Clinical History: Back pain Technique: Axial T2-weighted images, and sagittal T1-weighted, T2-weighted, and T2 fat-sat images wer e acquired. Findings: There is 8mm anterolisthesis of L5 over S1. No fracture seen. No suspicious bone marrow sig nal seen. There are reactive marrow signal changes about the L5-S1 disc space due to degenerative dis c disease. At L1-L2, L2-L3, L3-L4, L4-L5, there is no disc bulge or herniation. There are mild to moderate facet joint degenerative changes at these levels. No spinal canal stenosis or neural foraminal narrowing a t these levels. At L5-S1, there is severe degenerative disc narrowing. There is mild disc uncovering/bulge with moder ate severe facet arthropathy. No central canal stenosis. There is moderate right neural foraminal mariano rowing, and mild left neural foraminal narrowing. Paravertebral soft tissues are unremarkable. Impression: 8 mm anterolisthesis of L5 over S1, with [id number] degenerative spondylosis at this level, as detailed above. Reviewed, dictated and finalized at [facility]. [employer] Impression: 8 mm anterolisthesis of L5 over S1, with [id number] degenerative spondylo sis at this level, as detailed above.
== END ==
PROVIDERS: PCP Nurse Practitioner Family; Visit Provider Nurse Practitioner Family
DX: M51.36 Other intervertebral disc degeneration, lumbar region (principal); M47.816 Spondylosis without myelopathy or radiculopathy, lumbar region; M54.50 Low back pain, unspecified
CPT/HCPCS: 72148

== ENCOUNTER 2025-04-01 13:16 | Outpatient (CLI) | payer BC, SELFPAY ==
--- NOTE | ~2025-04-01 | US_ITS ---
EXAMINATION: US pelvic complete w TV, 04/01/2025 13:19 CDT HISTORY: R10.2 - Pelvic and perineal pain Comparison: None Technique: Srivastava-scale and color Doppler images were obtained. Findings: Uterus: Uterus anteverted 8.9 x 5.4 x 4.6 cm. . Endometrium 4 mm. Right Ovary:Right ovary 3 x 2.3 x 4.6 cm. Left Ovary: Left ovary 3.8 x 2.4 x 3.6 cm. Free Fluid: None Impression: No acute abnormality. Reviewed, dictated and finalized at location P. Impression: No acute abnormality.
== END 2025-04-01 13:17 | disposition home or self-care (01) ==
PROVIDERS: PCP Nurse Practitioner Family; Visit Provider Obstetrics & Gynecology
DX: R10.20 Pelvic and perineal pain unspecified side (principal)
CPT/HCPCS: 76830; 76856